=== PATIENT | female | born 1985 | race Caucasian/White ===

== ENCOUNTER 2018-05-07 13:41 | Inpatient (IN) ==
[2018-05-07] MEDS ORDERED: CeFAZolin Premix DUPLEX 2,000 MG/50 ML BAG IVPB ONE (14:23)
[2018-05-07] MEDS ORDERED: Ringers Solution, Lactated 1,000 ML IVC ONE (14:23)
[2018-05-07] MEDS ORDERED: Metoclopramide 10 MG/2 ML VIAL IVP PRN ×2 (14:30→22:53)
[2018-05-07] MEDS ORDERED: Ondansetron 4 MG/2 ML VIAL IVP PRN ×2 (14:30→22:53)
[2018-05-07] MEDS ORDERED: *HR* Nalbuphine 10 MG/ML AMPUL IVP PRN (14:30)
[2018-05-07] MEDS ORDERED: Ringers Solution, Lactated 1,000 ML IVC SCH (14:30)
[2018-05-07] MEDS ORDERED: Naloxone 0.4 MG/ML INJ IVP PRN (14:30)
[2018-05-07] MEDS ORDERED: Famotidine 20 MG/2 ML VIAL IVP PRN (14:30)
[2018-05-07 14:51] LABS: Basophils # 0.1 K/mcL (0.0-0.2); Basophils % 0.5 %; Eosinophils % 0.2 %; Hematocrit 38.4 % (35.3-44.9); Hemoglobin 13.5 g/dL (11.5-15.4); Immature Granulocytes % 0.7 % (0-4); Lymphocytes # 1.5 K/mcL (0.6-4.6); Lymphocytes % 15.9 %; Mean Corpuscular HGB Conc 35.2 g/dL (31.6-35.5); Mean Corpuscular Hemoglobin 31.4 pg (28.0-33.3); Mean Corpuscular Volume 89.3 fL (83.0-100.0); Mean Platelet Volume 10.3 fL (9.4-12.4); Monocytes # 0.6 K/mcL (0.0-1.3); Monocytes % 5.9 %; Neutrophils # 7.3 K/mcL (1.6-8.9); Platelet Count 191 K/mcL (140-400); Segmented Neutrophils % 76.8 %
[2018-05-07 14:58] LABS: Amphetamine Screen,Urine Negative ng/mL (Cutoff=1000); Barbiturate Screen,Urine Negative ng/mL (Cutoff=200); Benzodiazepines Screen,Urine Negative ng/mL (Cutoff=200); Cannabinoid Screen,Urine Negative ng/mL (Cutoff = 50); Cocaine Screen,Urine Negative ng/mL (Cutoff= 300); Opiate Screen,Urine Negative ng/mL (Cutoff=300); Phencyclidine Screen,Urine Negative ng/mL (Cutoff=25)
--- NOTE | 2018-05-07 16:48 | Anesthesia Evaluation PreOp ---
Addendum entered and electronically signed by Shivam Zamora CRNA 05/07/18 16:57: Original Note: Date of Encounter: 05/07/18 Time of Encounter: 16:46 - Past History Planned Operation: csection for breach presentation and low GENARO Cardiac History: Denies any Significant Hx Pulmonary History: Denies Any Significant HX SECURITY DOOR INSTALLER History: Denies Any Significant HX Other Medical History: Denies Any Significant HX Anesthesia History: No Prior Anesthetic Complications, Past Anesthesia (finger, fallopian tube) : Yes (38 weeks, ) Alcohol Use: none Drug use: none Medications and Allergies Tablet 05/07/18 [History] Vitamin D 05/07/18 [History] Allergy/AdvReac Type Severity Reaction Status Date / Time No Known Allergies Allergy Verified 05/07/18 14:42 - Meds/Allergy Pre-op Review Medications Reviewed: Yes Allergies Reviewed: Yes Beta Blockers on Current Med List: No Anesthesia Results - Labs 05/07/18 14:25 Anesthesia Exam O2 Sat Height 1.75 m Height 1.75 m Weight 87.2 kg Weight 87.2 kg Height: 69 Weight: 87 - HEENT Pupil (Motor): Pupils equal Mallampati: II Teeth: Normal Oral Opening: Greater than 3 - SECURITY DOOR INSTALLER LOC: Oriented SECURITY DOOR INSTALLER Motor: Normal RUE, Normal LUE, Normal RLE, Normal LLE, Normal Face SECURITY DOOR INSTALLER Sensory: Normal: RUE, LUE, RLE, LLE, Face - Cardiac Rhythm: Regular Murmur: None JVD: No Carotid Bruit: No - Pulmonary Breath Sounds: bilateral Clear Respiratory Effort: Symmetrical Anesthesia Assess/Plan ASA Score: 2 Anesthetic Plan: Epidural Monitoring Plan: Standard Monitors
--- NOTE | 2018-05-07 18:19 | OB/GYN History & Physical ---
Date of Encounter: 05/07/18 Time of Encounter: 18:12 Assessment and Plan (1) 38 weeks gestation of Current visit: Yes Status: Acute admitted for delivery (2) Oligohydramnios Current visit: Yes Status: Acute GENARO 4 CM Primary c/s for breech presentation Qualifiers: Fetus number: single or unspecified fetus Trimester: third trimester Qualified Code(s): O41.03X0 - Oligohydramnios, third trimester, not applicable or unspecified (3) Breech presentation Current visit: Yes Status: Acute Primary c/s per Dr. Baez Qualifiers: Fetus number: single or unspecified fetus Qualified Code(s): O32.1XX0 - Maternal care for breech presentation, not applicable or unspecified History of Present Illness Chief complaint: Oligohydramnios, Breech presentation HPI: Ms. Bennett is a 32 year old female @ 38w1d presents to labor and delivery for primary section for Oligohydramnios GENARO of 4 cm and breech presentation. Patient reports good movement. Patient denies LOF, VB or regular contractions. Patient denies any complications with current that is a result of IVF. 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 Patient last ate at 1130. Blood type: A+ Rubella: Immune Hep B: Nonreactive GBS: Negative Past Med Surg Social Fam HX - Past Medical History Source: patient Medical history: no medical history Psychiatric history: no psych history - Past Surgical History Additional surgical history: salpingectomy of right falopian tube, right arm and hand surgery - Social History Smoking Status: Never smoker Smokeless Tobacco Status: No Alcohol use: none Drug use: none - Family History Father Living Status: Still Living Hx Family Cardiac Disorders: No Hx Family Respiratory Disorders: No Hx Family Cancer: No Hx Family GI Disorders: No Hx Family Genitourinary Disorders: No Hx Family Endocrine Disorder: No Hx Family Musculoskeletal Disorders: No Hx Family Neuromuscular Disorders: No Hx Family Neurologic Disorders: No Hx Family HEENT Disorders: No Hx Family Autoimmune Disorders: No Hx Family Reproductive Disorders: No Hx Family Psychosocial Disorders: No Hx Family Medical Disorders: No Obstetrical History - Pregnancies : 5 Para: 0 Term: 0 : 0 Ab's: 4 Livin Medications and Allergies Tablet 05/07/18 [History] Vitamin D 01/21/19 [History] Allergy/AdvReac Type Severity Reaction Status Date / Time No Known Allergies Allergy Verified 05/07/18 14:42 Review of System OB - Constitutional Constitutional ROS IM: no chills, no fever(s), no headache(s) - Cardiovascular Cardiovascular: pedal edema, no chest pain, no leg edema, no lightheadedness, no palpitations - Respiratory Respiratory: no cough - Gastrointestinal Gastrointestinal: no abdominal pain, no diarrhea, no heartburn, no nausea, no v omiting Exam - Constitutional Constitutional: well developed, well nourished, no acute distress, average body habitus - HEENT HEENT: Normocephaly, Mucus Membranes Moist - Neck Neck exam: full ROM, supple - Lungs Respiratory exam: CTAB - Cardiovascular Cardiovascular exam: RRR, +S1, +S2 - Abdomen Abdomen: Present: bowel sounds normal, gravid, non tender - Extremities Extremities exam: full ROM, normal capillary refill, normal inspection Deep Tendon Reflex Grade: 2+ Normal - Uterus Uterus exam: Present: normal size, normal contour - Comments Comments: FHR 135 bpm moderate variability +15x15 accels no decels noted. Contractions 1-4 min apart Cat. 1 tracing. Results Result Diagrams: 05/07/18 14:25 All other labs normal. - VTE Reasons for not Prescribing Prophylaxis: Treatment not Indicated - Low risk for VTE
[2018-05-07] MEDS ORDERED: *HR* FentaNYL (PF) 100 MCG/2 ML VIAL ONE (19:32)
[2018-05-07] MEDS ORDERED: *HR* Morphine Sulfate/PF 10 MG/10 ML AMPUL ONE (19:32)
[2018-05-07] MEDS ORDERED: *HR* Oxytocin 10 UNIT/ML VIAL IM ONE (19:34)
[2018-05-07] MEDS ORDERED: Lidocaine -MPF 1% 5 ML AMPUL ONE (19:34)
[2018-05-07] MEDS ORDERED: Bupivacaine/PF 0.75% in Dex 2 ML AMPUL INFILT ONE (19:36)
--- NOTE | 2018-05-07 20:33 | OB/GYN Procedure Note ---
Section - Date of procedure: 05/07/18 Preop diagnosis: breech (oligohydramnios) Post-op diagnosis: same Procedure: primary low transverse Surgeon: Jose Baez Quantitated Blood Loss: 200 Was there an commercial assistant present: Yes [employer] R[employer] Developer: Pricilla Salas [employer] Official: Shivam Zamora Anesthesia Type: Spinal section complications: none Disposition: Post floor Specimens: Placenta - (s) A Delivery Date: 05/07/18 Delivery Time: 20:05 Presentation: breech, flaco breech Route of delivery: other (Primary ) Gender: Female Viability: Viable Pounds: 6 Ounces: 15 Gram Weight: 3.155 kg at 1 minute: 8 at 5 minutes: 9 Placenta: partial extraction Cord: 3 umbilical vessels - Narrative Narrative: She was taken to the operating room with IV in place. She was then given spinal anesthesia. She was then prepped and draped in the usual sterile fashion. Once adequate analgesia was achieved a Pfannenstiel incision was made and carried sharply through some the subcutaneous and fatty tissue until the fascial layers reached. The fascia was then nicked in the midline and incised bilaterally with Salguero scissors. It was then dissected vertically for adequate exposure. Rectus abdominis musculature was then entered and at the midline and the peritoneum was sharply entered. A bladder blade was placed at the inferior margin incision. A bladder flap was then developed. The bladder blade was placed over the bladder flap and a low transverse incision was then made in the lower uterine segment. There was a small amount of fluid which was clear. Infant was in flaco breech presentation. was delivered in the usual fashion and without difficulty. Infant cried immediately upon delivery. Cord was clamped and cut after 1 minute. The infant was then passed to NICU team in attendance. Cord blood was obtained. The placenta was then delivered and uterine lavage and massage. Once the placenta was removed the uterus was delivered and massage. Uterine lavage was again performed. Uterus contracted down nicely. The uterine incision was then closed the Vicryl suture running locking fashion. One [id number] was placed for final hemostasis. The uterus was then replaced the pelvic cavity. The pelvic cavity was rinsed thoroughly with sterile water 2. C no bleeding the procedure was terminated. Sponge needle and instrument counts correct 2. The fascia was then closed with 0 Vicryl suture running nonlocking fashion. The suprafascial region was rinsed through sterile water 2 hours cauterized. The skin was then closed peña. Patient tolerated the procedure well. Estimated blood loss 200 cc. Patient delivered a female infant weight 6 lbs. 15 oz. with Apgars of 8 at 1 minute and 9 at 5 minutes.
[2018-05-07] MEDS ORDERED: Oxytocin 20 units/ LR 1000 mL 20 UNIT/1,000 ML BAG IVC ONE (21:08)
[2018-05-07] MEDS ORDERED: Sennosides 8.6 MG TABLET PO PRN (22:53)
[2018-05-07] MEDS ORDERED: Simethicone 80 MG TAB.CHEW PO PRN (22:53)
[2018-05-07] MEDS ORDERED: Oxytocin 20 units/ LR 1000 mL 20 UNIT/1,000 ML BAG IVC SCH (22:53)
[2018-05-07] MEDS: Ibuprofen 600 MG TABLET PO PRN (23:39)
[2018-05-07] MEDS: ceFAZolin 2,000 MG in Water for inj. (sterile) 20 ML 10 ML IVP SCH (23:39)
--- NOTE | 2018-05-08 04:25 | Anesthesia Evaluation Post Op ---
Date of Encounter: 05/08/18 Time of Encounter: 04:24 - Vital Signs Vital Signs: Vital Signs/O2 Sat, Most Current Temp Pulse Resp BP Pulse Ox 98.5 F 85 14 118/69 98 05/08/18 01:30 05/08/18 01:30 05/08/18 01:30 05/08/18 01:30 05/08/18 01:30 - Lungs Lungs: Clear Ascult./Percussion - Airway Airway: Non-obstructed - Cardiovascular Regular Rate - Mental Status Mental Status: Alert & Oriented, Answers Appropriately - Pain Pain Scale: 2 - Nausea Vomiting Nausea Vomiting: Not Present - Hydration Hydration: Tolerates oral liquids, Miner catheter
[2018-05-08] MEDS: Ibuprofen 600 MG TABLET PO PRN ×3 (06:14→20:40)
[2018-05-08 06:57] LABS: Basophils # 0.1 K/mcL (0.0-0.2); Basophils % 0.4 %; Eosinophils % 0.2 %; Hematocrit 29.8 % (35.3-44.9); Immature Granulocytes % 0.5 % (0-4); Lymphocytes # 1.8 K/mcL (0.6-4.6); Mean Corpuscular HGB Conc 34.9 g/dL (31.6-35.5); Mean Corpuscular Hemoglobin 31.4 pg (28.0-33.3); Mean Platelet Volume 9.9 fL (9.4-12.4); Monocytes # 0.9 K/mcL (0.0-1.3); Monocytes % 5.6 %; Neutrophils # 12.3 K/mcL (1.6-8.9); Platelet Count 149 K/mcL (140-400); Red Blood Count 3.31 M/mcL (3.82-4.97); Red Cell Distribution Width 13.1 % (11.5-14.5); Segmented Neutrophils % 81.3 %
[2018-05-08 06:58] LABS: Hemoglobin 10.4 g/dL (11.5-15.4)
[2018-05-08] MEDS: Prenatal Vit/FA 1 EACH TABLET PO SCH (08:12)
[2018-05-08] MEDS: ceFAZolin 2,000 MG in Water for inj. (sterile) 20 ML 10 ML IVP SCH (08:13)
--- NOTE | 2018-05-08 09:55 | OB/GYN Progress Note ---
Date of Encounter: 05/08/18 Time of Encounter: 09:51 - Assessment and Plan (1) S/P section Current Visit: Yes Status: Acute Stable post-op day 1. Continue with plan of care Subjective - Subjective Principal diagnosis: Section Interval history: Patient tolerated procedure well. She is ambulating without difficulty. Pain well-controlled. Has not urinated since cassidy removal, but tolerating PO intake at this time. Passing gas without difficulty. Denies any other complaints at this time. Patient reports: appetite normal, pain well controlled, ambulating normally, nauseated (now controlled) [place]: doing well Objective - Vital Signs Latest vital signs: Vital Signs Temp Pulse Resp BP Pulse Ox 05/08/18 07:49 98.1 F 90 14 109/80 97 05/08/18 01:30 98.5 F 85 14 118/69 98 05/08/18 00:10 98.5 F 98 14 133/87 97 05/07/18 23:30 98.2 F 94 14 126/92 99 05/07/18 23:00 98.8 F 78 16 125/83 99 Intake and Output 05/07/18 05/08/18 05/08/18 23:59 07:59 15:59 Intake Total 10 / 10 Output Total 200 / 200 250 / 250 Balance -190 / -190 -250 / -250 Intake: IV Fluids 10 10 Ancef 2,000 MG In Water for inj . (sterile) 10 ML @ 200 mls/hr IVP Q8HR [facility] Rx#:[id number] Output: Estimated Blood Loss 200 / 200 Catheter 250 / 250 Other: Weight 85.7 kg - Exam Lungs: bilateral: normal Chest: Normal S1, Normal S2 Extremities: Present: normal. Absent: edema Abdomen: Present: normal appearance, soft, other (peña in place) Incision: Present: normal, dry, intact Uterus: Present: normal (@U). Absent: tenderness - Labs Labs: Laboratory Results - last 24 hr 05/07/18 05/07/18 05/08/18 14:25 14:25 06:29 WBC 9.5 15.1 H D RBC 4.30 3.31 L Hgb 13.5 10.4 L D Hct 38.4 29.8 L MCV 89.3 90.0 MCH 31.4 31.4 MCHC 35.2 34.9 RDW 13.0 13.1 Plt Count 191 149 MPV 10.3 9.9 Immature Gran % 0.7 0.5 Seg Neutrophils % 76.8 81.3 Lymphocytes % 15.9 12.0 Monocytes % 5.9 5.6 Eosinophils % 0.2 0.2 Basophils % 0.5 0.4 Neutrophils # 7.3 12.3 H Lymphocytes # 1.5 1.8 Monocytes # 0.6 0.9 Eosinophils # 0.0 0.0 Basophils # 0.1 0.1 Urine Opiates Screen Negative Ur Barbiturates Screen Negative Ur Phencyclidine Scrn Negative Ur Amphetamines Screen Negative U Benzodiazepines Scrn Negative Urine Cocaine Screen Negative U Marijuana (THC) Screen Negative Ur Drug Screen Interp See Below - Allied health notes Allied health notes reviewed: nursing
[2018-05-08] MEDS: *HR* OxyCODONE/APAP 5/325 TABLET PO PRN (20:40)
[2018-05-09] MEDS: Ibuprofen 600 MG TABLET PO PRN (06:55)
[2018-05-09] MEDS: *HR* OxyCODONE/APAP 5/325 TABLET PO PRN (06:55)
[2018-05-09 08:12] VITALS: BP 109/67
[2018-05-09] MEDS: Prenatal Vit/FA 1 EACH TABLET PO SCH (08:13)
--- NOTE | 2018-05-09 09:07 | Discharge Summary ---
Date of Encounter: 05/09/18 Time of Encounter: 09:04 - Discharge Diagnosis (1) Breast feeding status of mother Priority: Secondary Status: Acute (2) S/P section Priority: Primary Status: Acute Comments: Pt meeting Post-op day 2 milestones. +BM. Incision clean dry and intact with peña in place. Reports pain managed by Ibuprofen & Percocet. Reports is going well. Discussed control options and safe spacing. Denies control today, plans to discuss with Dr. Baez at appt. Anticipate discharge home today. - Discharge Medications Prescriptions: OxyCODONE/APAP 5/325 [Percocet 5/325 MG] 1 each PO Q6HR PRN 7 Days #28 tablet PRN Reason: Moderate pain 4-6 Docusate [Colace] 100 mg PO BID #60 capsule Ibuprofen [Motrin] 600 mg PO Q6H PRN #60 tablet PRN Reason: Cramping Home Medications: Tablet 05/07/18 [History] Vitamin D 05/07/18 [History] Docusate [Colace] 100 mg PO BID #60 capsule 05/09/18 [Rx] Ibuprofen [Motrin] 600 mg PO Q6H PRN #60 tablet 05/09/18 [Rx] OxyCODONE/APAP 5/325 [Percocet 5/325 MG] 1 each PO Q6HR PRN 7 Days #28 tablet 05/09/18 [Rx] Allergies/Adverse Reactions: Allergy/AdvReac Type Severity Reaction Status Date / Time No Known Allergies Allergy Verified 05/07/18 14:42 Data Procedures and tests throughout hospitalization: Laboratory Tests 05/07/18 05/07/18 05/08/18 14:25 14:25 06:29 WBC 9.5 15.1 H D RBC 4.30 3.31 L Hgb 13.5 10.4 L D Hct 38.4 29.8 L MCV 89.3 90.0 MCH 31.4 31.4 MCHC 35.2 34.9 RDW 13.0 13.1 Plt Count 191 149 MPV 10.3 9.9 Immature Gran % 0.7 0.5 Seg Neutrophils % 76.8 81.3 Lymphocytes % 15.9 12.0 Monocytes % 5.9 5.6 Eosinophils % 0.2 0.2 Basophils % 0.5 0.4 Neutrophils # 7.3 12.3 H Lymphocytes # 1.5 1.8 Monocytes # 0.6 0.9 Eosinophils # 0.0 0.0 Basophils # 0.1 0.1 Urine Opiates Screen Negative Ur Barbiturates Screen Negative Ur Phencyclidine Scrn Negative Ur Amphetamines Screen Negative U Benzodiazepines Scrn Negative Urine Cocaine Screen Negative U Marijuana (THC) Screen Negative Ur Drug Screen Interp See Below Date of admission: 05/07/18 13:41 Primary care physician: Connor Smalls Jr, MD Discharging clinician: Radha Staton Anticipated date of discharge: 05/09/18 - Patient Status Disposition: Home, Self-Care Condition: Good Functional capacity at discharge: independent ambulation Overall status at discharge: patient is progressing back to baseline - Discharge Instructions Follow Up With: Connor Smalls Jr, MD [Primary Care Provider] - Jose Baez MD [Partnered Physician] - - Diet and Activity Activity: increase activity as tolerated Diet: regular diet Hospital Course Reason for admission: section Delivery: section Episiotomy: none Laceration: none Other procedures: none complications: none Discharge diagnosis: IUP at term delivered [place] baby: female Hospital course: - Date of procedure: 05/07/18 Preop diagnosis: breech (oligohydramnios) Post-op diagnosis: same Procedure: primary low transverse Surgeon: Jose Baez Quantitated Blood Loss: 200 Was there an transport assistant present: Yes [employer] Teacher: Pricilla Salas [employer] Machines Setter: Shivam Zamora Anesthesia Type: Spinal section complications: none Disposition: Post floor Specimens: Placenta - Infant (s) Infant A Infant Delivery Date: 05/07/18 Infant Delivery Time: 20:05 Presentation: breech, flaco breech Route of delivery: other (Primary ) Gender: Female Viability: Viable Pounds: 6 Ounces: 15 Gram Weight: 3.155 kg at 1 minute: 8 at 5 minutes: 9 Placenta: partial extraction Cord: 3 umbilical vessels Time Attestation: Total time spent providing and/or coordinating discharge services: Time Spent: Less than 30 minutes - VTE Reasons for not Prescribing Prophylaxis: Treatment not Indicated - Low risk for VTE Documentation of Mechanical Device: Intermittent pneumatic compression device Exam - Constitutional Vitals: Temp Pulse Resp BP Pulse Ox 98.4 F 83 16 109/67 96 05/09/18 08:12 05/09/18 08:12 05/09/18 08:12 05/09/18 08:12 05/09/18 08:12 General appearance IM: A&O X 3, pleasant, no acute distress - Respiratory Respiratory exam: Present: CTAB - Cardiovascular Cardiovascular exam IM: Present: RRR - GI/Abdominal GI/Abdominal exam IM: normal bowel sounds Incision: normal, dry, intact - Uterine Tone: Firm Uterus Position: 1 Finger Below Umbilicus, Midline - Extremities Exam Extremities exam IM: Present: normal capillary refill, pedal edema (1+). Absent: calf tenderness, tenderness - Neurological Exam Neurological exam: alert, oriented X3, reflexes normal - Other Additional findings: OARRS reviewed. No recent rx hx. Tylenol #3 rx in August 2017 for 3 days.
== END 2018-05-09 12:41 | disposition home or self-care (01) | DRG 788 ==
LOC: 1NENULAB 13:41 → 1NENUOBS 22:49
PROVIDERS: ADMIT Obstetrics & Gynecology; ATTEND Obstetrics & Gynecology